=== PATIENT | female | born 1990 | race Caucasian/White ===

== ENCOUNTER 2020-01-15 18:14 | Emergency (ER) | payer MEDICAID, OTHER ==
[~2020-01-15] VITALS: Ht 149.9 cm; Wt 83.9 kg
[2020-01-15] MEDS ORDERED: ACETAMINOPHEN 500 MG TAB PO ONE (21:00)
[2020-01-15] MEDS ORDERED: IBUPROFEN 800 MG TAB PO ONE (21:00)
[2020-01-15] MEDS ORDERED: ONDANSETRON ODT 4 MG TAB PO ONE (21:00)
[2020-01-15] MEDS ORDERED: SUMAtriptan SUCCINATE 6 MG/0.5 ML VL SC ONE (22:00)
[2020-01-15 22:11] VITALS: BP 132/88
== END 2020-01-15 22:41 | disposition home or self-care (01) ==
LOC: ER 18:14
DX: S09.90XA Unspecified injury of head, initial encounter (principal); G43.909 Migraine, unspecified, not intractable, without status migrainosus; I10 Essential (primary) hypertension; Z88.1 Allergy status to other antibiotic agents; Z88.2 Allergy status to sulfonamides; W22.8XXA Striking against or struck by other objects, initial encounter; Y93.72 Activity, wrestling; Y92.89 Other specified places as the place of occurrence of the external cause; Y99.8 Other external cause status
CPT/HCPCS: 70450; 96372; 99284; J3030; Q0162